=== PATIENT | female | born 1955 | race Caucasian/White ===

== ENCOUNTER 2022-03-01 13:17 | Inpatient (IN) | payer MEDICARE, OTHER ==
[2022-03-01 14:43] LABS: #Lymphocytes 3.1 thou/uL (1.20-3.40); #Monocytes 1.4 thou/uL (0.11-0.59); %Basophils 0.3 % (0.0-1.0); %Eosinophils 0.3 % (0.0-10.0); %Lymphocytes 21.2 % (21.0-51.0); %Monocytes 9.8 % (0.0-10.0); %Neutrophils 68.5 % (42.0-75.0); Hemoglobin 11.4 g/dL (12.0-16.0); Mean Corpuscular HGB CONC 32.9 g/dL (32.0-36.0); Mean Corpuscular Hemoglobin 28.7 pg (27.0-31.0); Mean Corpuscular Volume 87.2 fL (78.0-98.0); Mean Platelet Volume 6.9 fL (7.4-10.4); Platelet Count 393 thou/uL (130-400); RBC Distribution Width 15.8 % (11.5-14.5); Red Blood Cell (RBC) Count 3.98 mill/uL (4.20-5.40); White Blood Cell (WBC) Count 14.7 thou/uL (4.8-10.8)
[2022-03-01 15:06] LABS: ALT (SGPT) 12 U/L (8-55); AST (SGOT) 16 U/L (5-34); Albumin 3.9 g/dL (3.4-4.8); Alkaline Phosphatase 41 U/L (40-110); Anion Gap 15 mmol/L (10-20); BUN (Urea Nitrogen) 16 mg/dL (9.8-20.1); Bilirubin, Total 0.5 mg/dL (0.2-1.2); Calc. Creatinine Clearance 0 mL/min (70-130); Calcium 9.1 mg/dL (7.8-10.44); Carbon Dioxide 24 mmol/L (23-31); Chloride 102 mmol/L (98-107); Globulin 3.1 g/dL (2.4-3.5); Glucose 153 mg/dL (80-115); Sodium 138 mmol/L (136-145)
[2022-03-01 15:17] LABS: Potassium 2.8 mmol/L (3.5-5.1)
[2022-03-01] MEDS ORDERED: Cefepime 2 GM VIAL ONE (15:44)
[2022-03-01] MEDS ORDERED: Potassium Chloride 40 MEQ in Sodium Chloride 0.9% 250 ML 250 ML IVPB SCH (15:45)
[2022-03-01] MEDS ORDERED: Vancomycin 1.5 GRAM/300 ML BAG 1.5 GM in Premix Bag 1 BAG IVPB SCH (15:45)
[2022-03-01] MEDS ORDERED: Cefepime 2 GM in Sodium Chloride 0.9% 100 ML IVPB SCH (15:45)
[2022-03-01 17:57] LABS: Bacteria/HPF None Seen HPF (None Seen); Bilirubin Negative (Negative); Blood, Urine Negative (Negative); Clarity Turbid (Clear); Glucose, Urine (Dipstick) 30 mg/dL (Negative); Ketone, Urine 80 mg/dL (Negative); Leukocyte Negative Leu/uL (Negative); Mucous/LPF 1+ LPF (<2+); Nitrite Negative (Negative); Protein, Urine (Dipstick) 100 mg/dL (Neg-Trace); RBC/HPF 0-3 HPF (0-3); Urobilinogen Normal mg/dL (Less than 2); WBC/HPF None Seen HPF (0-3)
[2022-03-01] MEDS ORDERED: Ondansetron ODT 4 MG TAB PO PRN (21:07)
[2022-03-01] MEDS ORDERED: Dextrose 5% in Water 1,000 ML IV PRN (21:07)
[2022-03-01] MEDS ORDERED: Ondansetron PF 4 MG/2 ML Vial IVP PRN (21:07)
[2022-03-01] MEDS ORDERED: Dextrose 50% Abboject 50 ML SYRINGE SLOW IVP PRN (21:07)
[2022-03-01] MEDS ORDERED: Acetaminophen 650 MG Suppository PR PRN (21:07)
[2022-03-01] MEDS ORDERED: HumaLOG 300 UNITS/3 ML VIAL SC PRN (21:07)
[2022-03-01 21:45] LABS: Magnesium 1.3 mg/dL (1.6-2.6)
[2022-03-01] MEDS ORDERED: Electrolyte Replacement Protocol 1 EACH FS PRN (22:00)
[2022-03-01] MEDS ORDERED: Piperacillin/Tazobactam 3.375 GM in Sodium Chloride 0.9% 100 ML IVPB SCH (22:45)
[2022-03-02] VITALS: BMI 37.7
[2022-03-02] MEDS ORDERED: Magnesium Sulfate In Water 4 GM in Premix Bag 1 BAG IVPB SCH (01:00)
[2022-03-02] MEDS: Metoprolol Tartrate 5 MG/5 ML VIAL IVP PRN ×3 (02:01→02:33)
[2022-03-02 02:30] LABS: Troponin I 0.079 ng/mL (< 0.028)
[2022-03-02] MEDS ORDERED: Vancomycin 1.5 GRAM/300 ML BAG 1.5 GM in Premix Bag 1 BAG IVPB SCH (04:00)
[2022-03-02] MEDS: Vancomycin 1.5 GRAM/300 ML BAG 1.5 GM in Premix Bag 1 BAG IVPB SCH ×2 (04:02→16:39)
[2022-03-02] MEDS: Labetalol HCl 100 MG/20 ML VIAL SLOW IVP PRN ×2 (04:31→12:45)
[2022-03-02 04:45] LABS: #Eosinphils 0.1 thou/uL (0.0-0.7); #Monocytes 1.5 thou/uL (0.11-0.59); #Neutrophils 8.7 thou/uL (1.40-6.50); %Basophils 0.2 % (0.0-1.0); %Eosinophils 0.8 % (0.0-10.0); %Lymphocytes 27.8 % (21.0-51.0); %Monocytes 10.3 % (0.0-10.0); %Neutrophils 60.9 % (42.0-75.0); Hemoglobin 11.6 g/dL (12.0-16.0); Mean Corpuscular HGB CONC 33.9 g/dL (32.0-36.0); Mean Corpuscular Hemoglobin 29.6 pg (27.0-31.0); Mean Corpuscular Volume 87.4 fL (78.0-98.0); Platelet Count 417 thou/uL (130-400); Red Blood Cell (RBC) Count 3.91 mill/uL (4.20-5.40); White Blood Cell (WBC) Count 14.2 thou/uL (4.8-10.8)
[2022-03-02 04:51] LABS: Anion Gap 15 mmol/L (10-20); BUN (Urea Nitrogen) 15 mg/dL (9.8-20.1); Calc. Creatinine Clearance 118 mL/min (70-130); Calcium 9.1 mg/dL (7.8-10.44); Carbon Dioxide 24 mmol/L (23-31); Chloride 104 mmol/L (98-107); Glucose 170 mg/dL (80-115); Sodium 140 mmol/L (136-145)
[2022-03-02 05:02] LABS: Potassium 2.8 mmol/L (3.5-5.1)
[2022-03-02 05:06] LABS: Hemoglobin A1c 5.8 % (4.0-6.0)
[2022-03-02 05:47] LABS: Magnesium 2.6 mg/dL (1.6-2.6)
[2022-03-02 05:51] LABS: Troponin I 0.082 ng/mL (< 0.028)
[2022-03-02] MEDS: Piperacillin/Tazobactam 3.375 GM in Sodium Chloride 0.9% 100 ML IVPB SCH ×3 (05:54→20:42)
[2022-03-02] MEDS: hydrALAZINE 20 MG/ML VIAL SLOW IVP PRN ×3 (05:54→20:42)
[2022-03-02] MEDS: Potassium Chloride 20 MEQ TAB PO SCH ×2 (05:55→10:07)
[2022-03-02] MEDS: Benzonatate 100 MG CAP PO PRN ×3 (05:56→22:10)
[2022-03-02] MEDS: Enoxaparin Sodium 40 MG/0.4 ML SYRINGE SC SCH (10:06)
[2022-03-02] MEDS: Acetaminophen 325 MG TAB PO PRN ×2 (16:35→22:10)
[2022-03-02] MEDS: HumaLOG 300 UNITS/3 ML VIAL SC PRN (18:02)
[2022-03-02] MEDS ORDERED: Potassium Chloride 20 MEQ TAB PO SCH (23:00)
[2022-03-02] MEDS ORDERED: Magnesium 2 GM/50 ML(in water) 2 GM in Premix Bag 1 BAG IVPB SCH (23:00)
[2022-03-03] MEDS: hydrALAZINE 20 MG/ML VIAL SLOW IVP PRN ×3 (03:37→23:21)
[2022-03-03] MEDS: Vancomycin 1.5 GRAM/300 ML BAG 1.5 GM in Premix Bag 1 BAG IVPB SCH ×2 (03:56→17:54)
[2022-03-03 04:54] LABS: #Basophils 0.1 thou/uL (0.0-0.2); #Eosinphils 0.1 thou/uL (0.0-0.7); #Lymphocytes 3.2 thou/uL (1.20-3.40); #Monocytes 1.5 thou/uL (0.11-0.59); #Neutrophils 9.9 thou/uL (1.40-6.50); %Basophils 0.4 % (0.0-1.0); %Eosinophils 0.8 % (0.0-10.0); %Lymphocytes 21.8 % (21.0-51.0); %Monocytes 10.4 % (0.0-10.0); %Neutrophils 66.7 % (42.0-75.0); Mean Corpuscular HGB CONC 32.6 g/dL (32.0-36.0); Mean Corpuscular Volume 89.1 fL (78.0-98.0); Platelet Count 380 thou/uL (130-400); White Blood Cell (WBC) Count 14.9 thou/uL (4.8-10.8)
[2022-03-03] MEDS: Piperacillin/Tazobactam 3.375 GM in Sodium Chloride 0.9% 100 ML IVPB SCH ×3 (05:18→19:58)
[2022-03-03 05:21] LABS: Vancomycin, Trough 12.9 ug/mL
[2022-03-03 05:28] LABS: Anion Gap 15 mmol/L (10-20); BUN (Urea Nitrogen) 12 mg/dL (9.8-20.1); Calc. Creatinine Clearance 116 mL/min (70-130); Calcium 8.6 mg/dL (7.8-10.44); Carbon Dioxide 23 mmol/L (23-31); Chloride 104 mmol/L (98-107); Glucose 173 mg/dL (80-115); Magnesium 2.5 mg/dL (1.6-2.6); Potassium 3.7 mmol/L (3.5-5.1); Sodium 138 mmol/L (136-145)
[2022-03-03] MEDS: Acetaminophen 325 MG TAB PO PRN ×2 (05:35→10:08)
[2022-03-03] MEDS: HumaLOG 300 UNITS/3 ML VIAL SC PRN ×2 (05:36→11:18)
[2022-03-03] MEDS: Benzonatate 100 MG CAP PO PRN ×3 (05:36→21:50)
[2022-03-03] MEDS: busPIRone HCl 5 MG TAB PO SCH (08:29)
[2022-03-03] MEDS: FLUoxetine HCl 20 MG CAP PO SCH (08:30)
[2022-03-03] MEDS: Enoxaparin Sodium 40 MG/0.4 ML SYRINGE SC SCH (08:30)
[2022-03-03] MEDS ORDERED: Montelukast Sodium 10 mg Tablet PO SCH (21:00)
[2022-03-03] MEDS ORDERED: Simethicone Chewable 80 MG TAB PO SCH (21:45)
[2022-03-04] MEDS: hydrALAZINE 20 MG/ML VIAL SLOW IVP PRN ×2 (03:56→16:38)
[2022-03-04] MEDS: Vancomycin 1.5 GRAM/300 ML BAG 1.5 GM in Premix Bag 1 BAG IVPB SCH ×2 (03:57→16:38)
[2022-03-04 05:16] LABS: Anion Gap 14 mmol/L (10-20); BUN (Urea Nitrogen) 9 mg/dL (9.8-20.1); Calc. Creatinine Clearance 116 mL/min (70-130); Calcium 8.8 mg/dL (7.8-10.44); Carbon Dioxide 22 mmol/L (23-31); Chloride 104 mmol/L (98-107); Glucose 165 mg/dL (80-115); Potassium 3.6 mmol/L (3.5-5.1); Sodium 136 mmol/L (136-145)
[2022-03-04] MEDS ORDERED: Labetalol HCl 100 MG/20 ML VIAL SLOW IVP PRN (05:28)
[2022-03-04] MEDS: Piperacillin/Tazobactam 3.375 GM in Sodium Chloride 0.9% 100 ML IVPB SCH ×2 (05:46→12:04)
[2022-03-04] MEDS: HumaLOG 300 UNITS/3 ML VIAL SC PRN ×2 (05:46→12:04)
[2022-03-04] MEDS: FLUoxetine HCl 20 MG CAP PO SCH (09:08)
[2022-03-04] MEDS: Enoxaparin Sodium 40 MG/0.4 ML SYRINGE SC SCH (09:08)
[2022-03-04] MEDS: busPIRone HCl 5 MG TAB PO SCH (09:08)
[2022-03-04 10:08] LABS: #Eosinphils 0.1 thou/uL (0.0-0.7); #Lymphocytes 2.9 thou/uL (1.20-3.40); #Monocytes 1.5 thou/uL (0.11-0.59); #Neutrophils 9.5 thou/uL (1.40-6.50); %Basophils 0.2 % (0.0-1.0); %Eosinophils 0.5 % (0.0-10.0); %Lymphocytes 20.7 % (21.0-51.0); %Monocytes 10.4 % (0.0-10.0); %Neutrophils 68.1 % (42.0-75.0); Hemoglobin 11.7 g/dL (12.0-16.0); Mean Corpuscular HGB CONC 32.6 g/dL (32.0-36.0); Mean Corpuscular Hemoglobin 29.1 pg (27.0-31.0); Mean Corpuscular Volume 89.3 fL (78.0-98.0); Mean Platelet Volume 6.8 fL (7.4-10.4); Platelet Count 373 thou/uL (130-400); RBC Distribution Width 16.2 % (11.5-14.5); Red Blood Cell (RBC) Count 4.03 mill/uL (4.20-5.40); White Blood Cell (WBC) Count 13.9 thou/uL (4.8-10.8)
[2022-03-04 17:34] VITALS: BP 192/86; TEMP 98.1
== END 2022-03-04 18:20 | disposition home or self-care (01) | DRG 863 ==
LOC: ERS 13:17 → 2NO 21:47 → OBSVTOIN 03-02 09:27
PROVIDERS: ADMIT Internal Medicine; ATTEND Internal Medicine
DX: T81.49XA Infection following a procedure, other surgical site, initial encounter (principal); I47.2 Ventricular tachycardia; I48.92 Unspecified atrial flutter; G93.40 Encephalopathy, unspecified; Z20.822 Contact with and (suspected) exposure to COVID-19; E11.9 Type 2 diabetes mellitus without complications; I48.91 Unspecified atrial fibrillation; I10 Essential (primary) hypertension; Y83.8 Other surgical procedures as the cause of abnormal reaction of the patient, or of later complication, without mention of misadventure at the time of the procedure; E87.6 Hypokalemia; E66.9 Obesity, unspecified; Z68.37 Body mass index [BMI] 37.0-37.9, adult; Z88.5 Allergy status to narcotic agent; Z79.84 Long term (current) use of oral hypoglycemic drugs; Z79.899 Other long term (current) drug therapy
CPT/HCPCS: 36415; 36416; 51701; 71045; 80048; 80053; 80202; 81003; 81015; 83036; 83605; 83735; 84484; 85025; 87040; 93005; 93010; 93306; 96365; 96366; 96367; J0360; J0692; J1650; J1815; J2543; J3370; J3475; J3480; J3490; J7050; U0003; U0005

== ENCOUNTER 2023-07-17 14:11 | Emergency (ER) | payer MEDICARE, OTHER | END 2023-07-17 17:50 | disposition home or self-care (01) | LOC: ERS 14:11 | DX: M79.661 Pain in right lower leg (principal); I48.91 Unspecified atrial fibrillation; E11.9 Type 2 diabetes mellitus without complications; I10 Essential (primary) hypertension; Z79.899 Other long term (current) drug therapy; Z79.82 Long term (current) use of aspirin; Z79.84 Long term (current) use of oral hypoglycemic drugs | CPT/HCPCS: 36415; 85379 ==

== ENCOUNTER 2023-08-04 09:52 | Outpatient (CLI) | payer MEDICARE, OTHER | END 2023-08-04 09:53 | disposition home or self-care (01) | LOC: MRI 09:52 | PROVIDERS: ATTEND Nurse Practitioner Family | DX: M47.26 Other spondylosis with radiculopathy, lumbar region (principal); M51.16 Intervertebral disc disorders with radiculopathy, lumbar region; M48.061 Spinal stenosis, lumbar region without neurogenic claudication; Q76.49 Other congenital malformations of spine, not associated with scoliosis; G95.81 Conus medullaris syndrome | CPT/HCPCS: 72148 ==